=== PATIENT | male | born 1935 | race Caucasian/White ===

== ENCOUNTER 2017-09-21 10:13 | Inpatient (IN) | payer MEDICARE, OTHER ==
[~2017-09-21] VITALS: Ht 182.9 cm; Wt 74.9 kg
[2017-09-21 12:00] LABS: Basophils # (auto) 0 uL; Basophils % (auto) 0.4 % (0.0-2.0); Eosinophils # (auto) 0.1 uL; Hemoglobin 11.9 g/dL (13.5-17.5); Platelet Count (auto) 280 10^3/uL (140-450)
[2017-09-21 12:02] LABS: Eosinophils % (auto) 1.2 % (0.0-7.0); Hematocrit 35.6 % (41.0-53.0); Lymphocytes # (auto) 1.3 uL; Lymphocytes % (auto) 13.1 % (10.0-50.0); Mean Corpuscular Hgb Conc. 33.3 g/dL (32.0-36.0); Monocytes # (auto) 1.2 uL; Monocytes % (auto) 12.4 % (0.0-12.0); Neutrophils # (auto) 7.3 uL; Neutrophils % (auto) 72.9 % (37.0-80.0); Red Blood Cells 3.49 10^6/uL (4.5-5.90); Red Cell Distribution Width 14.4 % (11.8-14.3)
[2017-09-21 12:18] LABS: INR 0.98 (0.9-1.15); Partial Thromboplastin Time 25.2 sec (22.64-33.71); Prothrombin Time 10.7 sec (9.37-12.3)
[2017-09-21 12:21] LABS: Albumin 3.4 g/dL (3.4-5.0); BUN/Creatinine Ratio 20.6; Bilirubin, Total 0.3 mg/dL (0.2-1.0); Calcium 9.4 mg/dL (8.5-10.1); Magnesium 2.7 mg/dL (1.6-2.6); Total Protein 7.1 g/dL (6.4-8.2)
[2017-09-21 13:35] LABS: Urine Bacteria FEW /hpf (None Seen); Urine Blood 2+ /uL (Negative); Urine Specific Gravity 1.017 (1.001-1.035); Urine WBC 1153 /hpf (0 - 3)
[2017-09-21] MEDS ORDERED: ACETAMINOPHEN 325 MG TAB PO PRN (17:30)
[2017-09-21] MEDS ORDERED: MORPHINE SULFATE 4 MG/ML SYR/VIAL IV PRN (17:30)
[2017-09-21] MEDS ORDERED: NITROGLYCERIN 0.4 MG SL TAB SL PRN (17:30)
[2017-09-21] MEDS: ONDANSETRON HCL 4 MG/2 ML VIAL IV SCH (18:00)
[2017-09-21] MEDS: SODIUM CHLORIDE 0.9% 1,000 ML IV SCH (18:04)
[2017-09-21 18:41] LABS: Urine Bacteria FEW /hpf (None Seen); Urine Blood 1+ /uL (Negative); Urine Specific Gravity 1.014 (1.001-1.035); Urine WBC 340 /hpf (0 - 3); Urine WBC Clumps PRESENT /hpf (None Seen)
[2017-09-21 20:00] VITALS: BP 122/76
[2017-09-21] MEDS: LINEZOLID 600MG/300ML 300 ML IV SCH (20:32)
[2017-09-21] MEDS: HYDROcodone-ACET 5/325MG TAB PO PRN ×2 (20:33→21:44)
[2017-09-21] MEDS: TEMAZEPAM 15 MG CAP PO PRN (21:08)
[2017-09-21 21:54] VITALS: BP 122/76
[2017-09-22] VITALS (8 sets, daily range): BP systolic 100–115; BP diastolic 55–80
[2017-09-22] MEDS: ONDANSETRON HCL 4 MG/2 ML VIAL IV SCH ×4 (02:00→18:00)
[2017-09-22 05:48] LABS: Basophils # (auto) 0 uL; Basophils % (auto) 0.2 % (0.0-2.0); Lymphocytes # (auto) 1.1 uL; Mean Corpuscular Hemoglobin 34.8 pg (28.0-32.0); Mean Corpuscular Hgb Conc. 33.8 g/dL (32.0-36.0); Monocytes # (auto) 1.4 uL; White Blood Cell 10.9 10^3/uL (4.4-10.8)
[2017-09-22 05:50] LABS: Eosinophils # (auto) 0.1 uL; Eosinophils % (auto) 1.2 % (0.0-7.0); Hemoglobin 11.2 g/dL (13.5-17.5); Lymphocytes % (auto) 10.2 % (10.0-50.0); Mean Corpuscular Volume 102.7 fL (80.0-100.0); Monocytes % (auto) 12.6 % (0.0-12.0); Neutrophils # (auto) 8.2 uL; Neutrophils % (auto) 75.8 % (37.0-80.0); Platelet Count (auto) 246 10^3/uL (140-450); Red Blood Cells 3.21 10^6/uL (4.5-5.90); Red Cell Distribution Width 14.4 % (11.8-14.3)
[2017-09-22 06:33] LABS: Albumin 3.1 g/dL (3.4-5.0); BUN/Creatinine Ratio 21.7; Bilirubin, Total 0.4 mg/dL (0.2-1.0); Potassium 4.5 mmol/L (3.5-5.1); Total Protein 6.4 g/dL (6.4-8.2)
[2017-09-22] MEDS: HYDROcodone-ACET 5/325MG TAB PO PRN ×3 (08:22→20:53)
[2017-09-22] MEDS: FOLIC ACID 1 MG TAB PO SCH (09:45)
[2017-09-22] MEDS: LINEZOLID 600MG/300ML 300 ML IV SCH ×2 (09:46→20:53)
[2017-09-22] MEDS ORDERED: FEXOFENADINE HCL 60 MG TAB PO SCH (10:00)
[2017-09-22] MEDS: SODIUM CHLORIDE 0.9% 1,000 ML IV SCH ×2 (12:04→22:30)
[2017-09-22] MEDS: TEMAZEPAM 15 MG CAP PO PRN (20:52)
[2017-09-23] MEDS: ONDANSETRON HCL 4 MG/2 ML VIAL IV SCH ×5 (02:00→14:00)
[2017-09-23 05:19] VITALS: BP 100/58
[2017-09-23 06:06] LABS: Basophils # (auto) 0 uL; Basophils % (auto) 0.3 % (0.0-2.0); Eosinophils # (auto) 0.1 uL; Hematocrit 31.4 % (41.0-53.0); Hemoglobin 10.6 g/dL (13.5-17.5); Lymphocytes # (auto) 1.1 uL; Mean Corpuscular Hemoglobin 34.9 pg (28.0-32.0); Mean Corpuscular Hgb Conc. 33.8 g/dL (32.0-36.0); Neutrophils # (auto) 4.3 uL; Nucleated Red Blood Cells % 0.1 %; Platelet Count (auto) 230 10^3/uL (140-450); Red Blood Cells 3.04 10^6/uL (4.5-5.90)
[2017-09-23 06:09] LABS: Eosinophils % (auto) 1.6 % (0.0-7.0); Lymphocytes % (auto) 17.2 % (10.0-50.0); Mean Corpuscular Volume 103.2 fL (80.0-100.0); Monocytes # (auto) 0.9 uL; Monocytes % (auto) 14.2 % (0.0-12.0); Neutrophils % (auto) 66.7 % (37.0-80.0); Red Cell Distribution Width 14.5 % (11.8-14.3); White Blood Cell 6.4 10^3/uL (4.4-10.8)
[2017-09-23 06:18] LABS: Calcium 8.8 mg/dL (8.5-10.1)
[2017-09-23 06:20] LABS: BUN/Creatinine Ratio 22.7
[2017-09-23 08:49] VITALS: BP 101/63
[2017-09-23] MEDS: FOLIC ACID 1 MG TAB PO SCH (10:00)
[2017-09-23] MEDS: LINEZOLID 600MG/300ML 300 ML IV SCH (10:00)
[2017-09-23 13:00] VITALS: BP 101/53
[2017-09-23] MEDS: SODIUM CHLORIDE 0.9% 1,000 ML IV SCH (13:11)
[2017-09-23] MEDS ORDERED: ONDANSETRON HCL 4 MG/2 ML VIAL IV PRN (14:15)
[2017-09-23 15:49] VITALS: BP 103/71
[2017-09-23 16:45] VITALS: BP 103/71
== END 2017-09-23 17:00 | disposition home or self-care (01) | DRG 699 ==
LOC: ER 10:13 → TELE 10:14 → TELE-CENTR 19:34
PROVIDERS: ADMIT Internal Medicine; ATTEND Internal Medicine
DX: T83.510A Infection and inflammatory reaction due to cystostomy catheter, initial encounter (principal); N18.4 Chronic kidney disease, stage 4 (severe); E44.0 Moderate protein-calorie malnutrition; N17.9 Acute kidney failure, unspecified; B95.62 Methicillin resistant Staphylococcus aureus infection as the cause of diseases classified elsewhere; N39.0 Urinary tract infection, site not specified; Z93.59 Other cystostomy status; I25.10 Atherosclerotic heart disease of native coronary artery without angina pectoris; D63.8 Anemia in other chronic diseases classified elsewhere; I12.9 Hypertensive chronic kidney disease with stage 1 through stage 4 chronic kidney disease, or unspecified chronic kidney disease; Y84.6 Urinary catheterization as the cause of abnormal reaction of the patient, or of later complication, without mention of misadventure at the time of the procedure; J45.909 Unspecified asthma, uncomplicated; N40.0 Benign prostatic hyperplasia without lower urinary tract symptoms; Z90.79 Acquired absence of other genital organ(s); Z88.1 Allergy status to other antibiotic agents; Z88.5 Allergy status to narcotic agent; Z88.2 Allergy status to sulfonamides; Z88.8 Allergy status to other drugs, medicaments and biological substances; Y92.89 Other specified places as the place of occurrence of the external cause
CPT/HCPCS: 36415; 74176; 80048; 80053; 81001; 83735; 85025; 85610; 85730; 87077; 87081; 87086; 87088; 87186; 87205; 93005; 94761

== ENCOUNTER 2019-08-20 23:44 | Emergency (ER) | payer MEDICARE, OTHER ==
[~2019-08-20] VITALS: Ht 182.9 cm; Wt 81.6 kg
[2019-08-21] MEDS ORDERED: FUROSEMIDE 20 MG/2 ML VIAL IV ONE (04:45)
[2019-08-21] MEDS ORDERED: IPRATROPIUM BROM 0.5 MG/2.5ML INH SOL NEB ONE (04:45)
[2019-08-21] MEDS ORDERED: ALBUTEROL SULF 2.5 MG/0.5ML(0.5%) NEB SOLN NEB ONE (04:45)
[2019-08-21] MEDS ORDERED: HYDROcodone-ACET 5/325MG TAB PO ONE (06:45)
[2019-08-21] MEDS ORDERED: ONDANSETRON ODT 4 MG TAB PO ONE (06:45)
[2019-08-21 06:49] LABS: Basophils # (auto) 0 uL; Basophils % (auto) 0.5 % (0.0-2.0); Monocytes # (auto) 0.7 uL; Neutrophils # (auto) 5.3 uL; Red Cell Distribution Width 14.6 % (11.8-14.3); White Blood Cell 6.9 10^3/uL (4.4-10.8)
[2019-08-21 06:51] LABS: Eosinophils # (auto) 0.1 uL; Eosinophils % (auto) 0.8 % (0.0-7.0); Hematocrit 34.9 % (41.0-53.0); Hemoglobin 11.8 g/dL (13.5-17.5); Lymphocytes # (auto) 0.8 uL; Lymphocytes % (auto) 12.2 % (10.0-50.0); Mean Corpuscular Hemoglobin 35.5 pg (28.0-32.0); Mean Corpuscular Hgb Conc. 33.7 g/dL (32.0-36.0); Mean Corpuscular Volume 105.3 fL (80.0-100.0); Monocytes % (auto) 9.5 % (0.0-12.0); Platelet Count (auto) 221 10^3/uL (140-450); Red Blood Cells 3.32 10^6/uL (4.5-5.90)
[2019-08-21 07:02] LABS: INR 1.02 (0.9-1.15); Partial Thromboplastin Time 24.9 sec (23.64-32.05)
[2019-08-21 07:04] LABS: Albumin 3.5 g/dL (3.4-5.0); BUN/Creatinine Ratio 15.3; Calcium 8.7 mg/dL (8.5-10.1); Potassium 4.9 mmol/L (3.5-5.1)
[2019-08-21 07:07] LABS: Bilirubin, Total 0.2 mg/dL (0.2-1.0); Total Protein 6.7 g/dL (6.4-8.2)
[2019-08-21] MEDS ORDERED: NIFE1TAB31 (08:14)
[2019-08-21] MEDS ORDERED: FOLI1TAB6 (08:14)
[2019-08-21] MEDS ORDERED: PRED-158 (08:14)
[2019-08-21] MEDS ORDERED: AMIO100T6 (08:14)
[2019-08-21] MEDS ORDERED: ALBU0.084 (08:14)
[2019-08-21 11:31] VITALS: BP 124/76
== END 2019-08-21 12:55 | disposition home or self-care (01) ==
LOC: ER 23:44 → EDBD 23:44 → EDUNIT# 23:44 → ER 08-21 12:55
DX: M16.12 Unilateral primary osteoarthritis, left hip (principal); R62.7 Adult failure to thrive; J45.909 Unspecified asthma, uncomplicated; I10 Essential (primary) hypertension; Z68.24 Body mass index [BMI] 24.0-24.9, adult; Z88.1 Allergy status to other antibiotic agents; Z88.6 Allergy status to analgesic agent; Z88.8 Allergy status to other drugs, medicaments and biological substances
CPT/HCPCS: 36415; 71045; 72192; 73502; 80053; 85025; 85610; 85730; 99285; Q0162

== ENCOUNTER 2021-03-10 10:45 | Inpatient (IN) | payer MEDICARE, OTHER ==
[~2021-03-10] VITALS: Ht 172.7 cm; Wt 50.8 kg
[~2021-03-10 10:45] MED LIST: ALBU0.084; AMIO100T6 PO; FOLI1TAB6; NIFE1TAB31
[2021-03-10 12:23] LABS: Basophils # (auto) 0 10 ^3/uL (0-0.2); Eosinophils # (auto) 0 10 ^3/uL (0-0.8); Monocytes # (auto) 0.6 10 ^3/uL (0-1.3); Neutrophils # (auto) 7.3 10 ^3/uL (1.6-8.6); White Blood Cell 8.5 10^3/uL (4.4-10.8)
[2021-03-10 12:25] LABS: Basophils % (auto) 0.2 % (0.0-2.0); Eosinophils % (auto) 0.1 % (0.0-7.0); Hematocrit 27.2 % (41.0-53.0); Lymphocytes # (auto) 0.5 10 ^3/uL (0.4-5.4); Lymphocytes % (auto) 6.3 % (10.0-50.0); Mean Corpuscular Hemoglobin 38.4 pg (28.0-32.0); Mean Corpuscular Volume 116.5 fL (80.0-100.0); Monocytes % (auto) 7.4 % (0.0-12.0); Nucleated Red Blood Cells % 0.2 %; Red Blood Cells 2.34 10^6/uL (4.5-5.90); Red Cell Distribution Width 17.2 % (11.8-14.3)
[2021-03-10 13:17] LABS: Albumin 2.4 g/dL (3.4-5.0); Calcium 8.3 mg/dL (8.5-10.1); Potassium 4.5 mmol/L (3.5-5.1)
[2021-03-10 13:21] LABS: BUN/Creatinine Ratio 13.9; Bilirubin, Total 0.2 mg/dL (0.2-1.0); Total Protein 6.2 g/dL (6.4-8.2)
[2021-03-11] MEDS ORDERED: ACETAMINOPHEN 325 MG TAB PO PRN (00:30)
[2021-03-11] MEDS ORDERED: SODIUM CHLORIDE 0.9% 500 ML IV ONE (00:30)
[2021-03-11] MEDS ORDERED: ONDANSETRON HCL 4 MG/2 ML VIAL IV PRN (00:30)
[2021-03-11 01:28] LABS: Basophils # (auto) 0 10 ^3/uL (0-0.2); Eosinophils # (auto) 0 10 ^3/uL (0-0.8); Hemoglobin 9.6 g/dL (13.5-17.5); Lymphocytes # (auto) 0.3 10 ^3/uL (0.4-5.4); Monocytes # (auto) 0.4 10 ^3/uL (0-1.3); Neutrophils % (auto) 91.5 % (37.0-80.0)
[2021-03-11 01:30] LABS: Basophils % (auto) 0.1 % (0.0-2.0); Eosinophils % (auto) 0.1 % (0.0-7.0); Hematocrit 29.2 % (41.0-53.0); Lymphocytes % (auto) 3.3 % (10.0-50.0); Mean Corpuscular Hemoglobin 38.4 pg (28.0-32.0); Mean Corpuscular Volume 116.4 fL (80.0-100.0); Neutrophils # (auto) 8.3 10 ^3/uL (1.6-8.6); Nucleated Red Blood Cells % 0.2 %; Red Blood Cells 2.51 10^6/uL (4.5-5.90); Red Cell Distribution Width 16.9 % (11.8-14.3)
[2021-03-11 01:35] LABS: Albumin 2.5 g/dL (3.4-5.0); Calcium 8.6 mg/dL (8.5-10.1); Potassium 5.1 mmol/L (3.5-5.1)
[2021-03-11 01:37] LABS: BUN/Creatinine Ratio 13.8
[2021-03-11 01:39] LABS: Bilirubin, Total 0.2 mg/dL (0.2-1.0); Total Protein 6.7 g/dL (6.4-8.2)
[2021-03-11] MEDS: AMIODARONE HCL 200 MG TAB PO SCH ×2 (10:00→21:14)
[2021-03-11] MEDS: PANTOPRAZOLE 40 MG TAB PO SCH (10:00)
[2021-03-11] MEDS: NIFEdipine ER 30 MG TAB PO SCH (10:00)
[2021-03-11 10:35] VITALS: BP 138/79
[2021-03-11] MEDS ORDERED: MULT-1018 PO (10:39)
[2021-03-11] MEDS ORDERED: MELA3TAB27 PO (10:39)
[2021-03-11] MEDS ORDERED: DIPH25CA66 PO (10:39)
[2021-03-11] MEDS ORDERED: FOLI1TAB6 PO (10:41)
[2021-03-11] MEDS ORDERED: SODIUM BICARBONATE 8.4 % INJ 50ML VIAL IV ONE (12:00)
[2021-03-11] MEDS ORDERED: SODIUM CHLORIDE 0.9% 1,000 ML IV SCH (12:00)
[2021-03-11 13:00] VITALS: BP 138/79
[2021-03-11] MEDS: SODIUM BICARBONATE 50ML VIAL 150 ML in D5W 5% 1,000 ML IV SCH ×2 (13:35→23:32)
[2021-03-11 17:00] VITALS: BP_SYST 112; BP_SYST 124; BP_DIAS 58; BP_DIAS 80
[2021-03-11 22:00] VITALS: BP 118/79
[2021-03-12 05:06] VITALS: BP 109/59
[2021-03-12 07:04] LABS: Basophils # (auto) 0 10 ^3/uL (0-0.2); Basophils % (auto) 0.3 % (0.0-2.0); Eosinophils # (auto) 0.1 10 ^3/uL (0-0.8); Hematocrit 21.3 % (41.0-53.0); Hemoglobin 7.4 g/dL (13.5-17.5); Lymphocytes # (auto) 0.5 10 ^3/uL (0.4-5.4); Lymphocytes % (auto) 7.1 % (10.0-50.0); Mean Corpuscular Hemoglobin 38.7 pg (28.0-32.0); Mean Corpuscular Hgb Conc. 34.5 g/dL (32.0-36.0); Monocytes # (auto) 0.4 10 ^3/uL (0-1.3); Neutrophils # (auto) 5.9 10 ^3/uL (1.6-8.6); Neutrophils % (auto) 85.6 % (37.0-80.0); Nucleated Red Blood Cells % 0.4 %; Red Cell Distribution Width 15.9 % (11.8-14.3); White Blood Cell 6.9 10^3/uL (4.4-10.8)
[2021-03-12 07:23] LABS: Potassium 3.5 mmol/L (3.5-5.1)
[2021-03-12 07:35] LABS: BUN/Creatinine Ratio 14.2; Calcium 7.8 mg/dL (8.5-10.1); Magnesium 2.4 mg/dL (1.6-2.6)
[2021-03-12 09:00] VITALS: BP 115/67
[2021-03-12] MEDS: AMIODARONE HCL 200 MG TAB PO SCH ×2 (09:10→21:14)
[2021-03-12] MEDS: NIFEdipine ER 30 MG TAB PO SCH (09:10)
[2021-03-12] MEDS: PANTOPRAZOLE 40 MG TAB PO SCH (09:11)
[2021-03-12 13:00] VITALS: BP 101/48
[2021-03-12 17:00] VITALS: BP 120/65
[2021-03-12 22:23] VITALS: BP 97/51
[2021-03-13 05:00] VITALS: BP 123/58
[2021-03-13 09:00] VITALS: BP 111/61
[2021-03-13] MEDS: NIFEdipine ER 30 MG TAB PO SCH (09:07)
[2021-03-13] MEDS: AMIODARONE HCL 200 MG TAB PO SCH (09:07)
[2021-03-13] MEDS: PANTOPRAZOLE 40 MG TAB PO SCH (09:07)
[2021-03-13 10:57] VITALS: BP 111/61
== END 2021-03-13 13:00 | disposition hospice, home (50) | DRG 682 ==
LOC: ER 10:45 → EDBD 10:45 → OVERFLOW 03-11 00:28 → CENTRAL 03-11 10:38
PROVIDERS: ADMIT Nurse Practitioner; ATTEND Internal Medicine
DX: N17.0 Acute kidney failure with tubular necrosis (principal); E43 Unspecified severe protein-calorie malnutrition; K85.90 Acute pancreatitis without necrosis or infection, unspecified; E87.2 Acidosis; I12.0 Hypertensive chronic kidney disease with stage 5 chronic kidney disease or end stage renal disease; N18.5 Chronic kidney disease, stage 5; Z66 Do not resuscitate; D63.8 Anemia in other chronic diseases classified elsewhere; H91.90 Unspecified hearing loss, unspecified ear; I25.10 Atherosclerotic heart disease of native coronary artery without angina pectoris; J45.909 Unspecified asthma, uncomplicated; Z20.822 Contact with and (suspected) exposure to COVID-19; N40.0 Benign prostatic hyperplasia without lower urinary tract symptoms; Z68.23 Body mass index [BMI] 23.0-23.9, adult; Z88.2 Allergy status to sulfonamides; Z88.8 Allergy status to other drugs, medicaments and biological substances; Z88.5 Allergy status to narcotic agent; Z85.46 Personal history of malignant neoplasm of prostate; Z90.49 Acquired absence of other specified parts of digestive tract; Z90.79 Acquired absence of other genital organ(s)
CPT/HCPCS: 36415; 71045; 74176; 76775; 80048; 80053; 82150; 82306; 83690; 83735; 83880; 84443; 85025; 87426; 93005; 96360; 96361; G0378